=== PATIENT | male | born 1955 | race African-American/Black ===

== ENCOUNTER 2018-10-26 18:58 | Inpatient (IN) | payer MEDICARE, MEDICAID ==
[~2018-10-26] VITALS: Ht 185.4 cm; Wt 88.9 kg
[2018-10-26] MEDS ORDERED: Aspirin Baby 81mg ORAL ONE (19:15)
--- NOTE | 2018-10-26 19:19 | Emergency Room Report ---
History of Present Illness General Chief Complaint: Chest Pain Source: Patient Present Illness HPI Patient has a history of pacemaker on the right-sided chest perform [place] a couple weeks ago per his report. Patient presents here complaining of chest pain that radiates to his arm. Associates some shortness of breath. Denies any leg pain leg swelling. Denies any nausea vomiting diarrhea or chills. Symptoms noted to be severe.No other modifying factors. No other associated signs and symptoms. No other complaints were noted. Allergies: Coded Allergies: No Known Allergies (Unverified , 10/26/18) Patient History Past Medical History: HTN, CAD, psych hx Past Surgical History: pacemaker Pertinent Family History: none Social History: Denies: smoking, alcohol use, drug use Reviewed Nursing Documentation: PMH: Agreed; PSxH: Agreed Nursing Documentation-PMH Hx Pacemaker: Yes History Of Psychiatric Problem: Yes - bipolar schizophrenia Hx Neurological Problems: Yes - left and right hip [place] Review of Systems All Other Systems: negative except mentioned in HPI Physical Exam Vital Signs Date Time Temp Pulse Resp B/P (MAP) Pulse Ox O2 Delivery O2 Flow Rate FiO2 10/26/18 19:03 99.0 74 18 139/87 97 Room Air Sp02 EP Interpretation: reviewed, normal General Appearance: alert, mild distress Head: normocephalic, atraumatic Eyes: bilateral eye normal inspection ENT: normal ENT inspection, hearing grossly normal, normal voice Neck: normal inspection, full range of motion, supple, no bony tend Respiratory: normal inspection, lungs clear, normal breath sounds, no respiratory distress, no retraction, no wheezing Cardiovascular #1: regular rate, rhythm, no edema, other - Pacemaker right side of chest. Some bruising over the pacemaker. No evidence of infection Gastrointestinal: normal inspection, normal bowel sounds, non tender, soft, no guarding, no hernia Genitourinary: no CVA tenderness Musculoskeletal: normal inspection, back normal, normal range of motion Neurologic: normal inspection, alert, responsive, speech normal Psychiatric: judgement/insight normal, depressed affect, anxious Skin: normal inspection, normal color, no rash Medical Decision Making Diagnostic Impression: Primary Impression: ACS (acute coronary syndrome) ER Course Patient presented to the emergency department today complaining of chest pain. Differential diagnoses include acute coronary syndrome, pulmonary embolism, pneumothorax, chest wall pain, pleurisy, pericarditis, acute anxiety reaction just to name a few. Given the severity of the patient's presentation I felt this is a highly complex patient. This patient required extensive workup. CBC , chemistry, EKG, chest x-ray, cardiac enzymes, liver profile were all obtained. 12-lead EKG performed for nontraumatic chest pain. RS documentation: EKG was performed. Please refer to below for interpretation. Patient had CBC and chemistry obtained. Both of which were normal. Patient's cardiac enzymes also normal. However given patient's risk factors and chest pain for the patient require admission. Case was discussed with Dr. Darrian Gonzalez patient will be admitted to telemetry for further treatment. Labs Test 10/26/18 18:37 10/26/18 19:37 Urine Color Pale yellow Urine Appearance Clear Urine pH 5 (4.5-8.0) Urine Specific [place] 1.015 (1.005-1.035) Urine Protein Negative (NEGATIVE) Urine Glucose (UA) Negative (NEGATIVE) Urine Ketones Negative (NEGATIVE) Urine Blood Negative (NEGATIVE) Urine Nitrite Negative (NEGATIVE) Urine Bilirubin Negative (NEGATIVE) Urine Urobilinogen Normal MG/DL (0.0-1.0) Urine Leukocyte Esterase 1+ (NEGATIVE) Urine RBC 0-2 /HPF (0 - 0) Urine WBC 2-4 /HPF (0 - 0) Urine Squamous Epithelial Cells None /LPF (NONE/OCC) Urine Bacteria Occasional /HPF (NONE) White Blood Count 6.2 K/UL (4.8-10.8) Red Blood Count 4.01 M/UL (4.70-6.10) Hemoglobin 12.1 G/DL (14.2-18.0) Hematocrit 36.4 % (42.0-52.0) Mean Corpuscular Volume 91 FL (80-99) Mean Corpuscular Hemoglobin 30.1 PG (27.0-31.0) Mean Corpuscular Hemoglobin Concent 33.1 G/DL (32.0-36.0) Red Cell Distribution Width 12.6 % (11.6-14.8) Platelet Count 265 K/UL (150-450) Mean Platelet Volume 6.0 FL (6.5-10.1) Neutrophils (%) (Auto) 59.6 % (45.0-75.0) Lymphocytes (%) (Auto) 31.4 % (20.0-45.0) Monocytes (%) (Auto) 5.1 % (1.0-10.0) Eosinophils (%) (Auto) 2.7 % (0.0-3.0) Basophils (%) (Auto) 1.3 % (0.0-2.0) Sodium Level 141 MMOL/L (136-145) Potassium Level 3.9 MMOL/L (3.5-5.1) Chloride Level 107 MMOL/L (98-107) Carbon Dioxide Level 25 MMOL/L (21-32) Anion Gap 9 mmol/L (5-15) Blood Urea Nitrogen 17 mg/dL (7-18) Creatinine 1.4 MG/DL (0.55-1.30) Estimat Glomerular Filtration Rate 51.2 mL/min (>60) Glucose Level 97 MG/DL (74-106) Calcium Level 9.1 MG/DL (8.5-10.1) Total Bilirubin 0.2 MG/DL (0.2-1.0) Aspartate Amino Transf (AST/SGOT) 34 U/L (15-37) Alanine Aminotransferase (ALT/SGPT) 44 U/L (12-78) Alkaline Phosphatase 93 U/L (46-116) Total Creatine Kinase 676 U/L (26-308) Creatine Kinase MB 2.7 NG/ML (0.0-3.6) Creatine Kinase MB Relative Index 0.3 Troponin I 0.000 ng/mL (0.000-0.056) Pro-B-Type Natriuretic Peptide 133 pg/mL (0-125) Total Protein 8.1 G/DL (6.4-8.2) Albumin 3.6 G/DL (3.4-5.0) Globulin 4.5 g/dL Albumin/Globulin Ratio 0.8 (1.0-2.7) Lipase 173 U/L (73-393) EKG Diagnostic Results Rate: normal Rhythm: other - Paced rhythm atrial ST Segments: no acute changes Rhythm Strip Diag. Results EP Interpretation: yes Rate: 95 Rhythm: no PVC's, other - Paced rhythm, PAC Chest X-Ray Diagnostic Results Chest X-Ray Diagnostic Results : Chest X-Ray Ordered: Yes # of Views/Limited/Complete: 1 View Indication: Chest Pain EP Interpretation: Yes Interpretation: no consolidation, no effusion, no pneumothorax, no acute cardiopulmonary disease, other - Pacemaker Impression: No acute disease Electronically Signed by: Electronically signed by Pascual Oconnell MD Last Vital Signs Date Time Temp Pulse Resp B/P (MAP) Pulse Ox O2 Delivery O2 Flow Rate FiO2 10/26/18 19:03 99.0 74 18 139/87 97 Room Air Status: improved Disposition: ADMITTED INPATIENT Condition: Serious Scripts Unable to Obtain Active Prescriptions or Reported Meds Pascual Oconnell MD Oct 26, 2018 19:19
[2018-10-26 19:53] LABS: BASOPHILS % (AUTO) 1.3 % (0.0-2.0); EOSINOPHILS % (AUTO) 2.7 % (0.0-3.0); HEMATOCRIT 36.4 % (42.0-52.0); HEMOGLOBIN 12.1 G/DL (14.2-18.0); LYMPHOCYTES % (AUTO) 31.4 % (20.0-45.0); MEAN CORPUSCULAR VOLUME 91 FL (80-99); MONOCYTES % (AUTO) 5.1 % (1.0-10.0); NEUTROPHILS % (AUTO) 59.6 % (45.0-75.0); PLATELET COUNT 265 K/UL (150-450); RED BLOOD COUNT 4.01 M/UL (4.70-6.10); RED CELL DISTRIBUTION WIDTH 12.6 % (11.6-14.8); WHITE BLOOD COUNT 6.2 K/UL (4.8-10.8)
[2018-10-26 20:01] LABS: APPEARANCE,URINE CLEAR; BILIRUBIN, URINE NEGATIVE (NEGATIVE); COLOR,URINE PALE YELLOW; GLUCOSE, URINE (UA) NEGATIVE (NEGATIVE); KETONES,URINE NEGATIVE (NEGATIVE); LEUKOCYTE ESTERASE ,URINE 1+ (NEGATIVE); NITRITE,URINE NEGATIVE (NEGATIVE); PH,URINE 5 (4.5-8.0); PROTEIN,URINE NEGATIVE (NEGATIVE); UROBILINOGEN,URINE NORMAL MG/DL (0.0-1.0)
[2018-10-26 20:08] LABS: ANION GAP 9 mmol/L (5-15); BLOOD UREA NITROGEN 17 mg/dL (7-18); CALCIUM 9.1 MG/DL (8.5-10.1); CARBON DIOXIDE 25 MMOL/L (21-32); CHLORIDE 107 MMOL/L (98-107); CREATININE 1.4 MG/DL (0.55-1.30); POTASSIUM 3.9 MMOL/L (3.5-5.1); SODIUM 141 MMOL/L (136-145)
[2018-10-26 20:22] LABS: ALANINE AMINOTRANSFERASE 44 U/L (12-78); ALBUMIN 3.6 G/DL (3.4-5.0); ALBUMIN/GLOBULIN RATIO 0.8 (1.0-2.7); ALKALINE PHOSPHATASE 93 U/L (46-116); ASPARTATE AMINO TRANSFERASE 34 U/L (15-37); BILIRUBIN,TOTAL 0.2 MG/DL (0.2-1.0); CKMB 2.7 NG/ML (0.0-3.6); CREATINE KINASE 676 U/L (26-308)
[2018-10-26 20:34] VITALS: BP 138/83
[2018-10-26] MEDS ORDERED: Albuterol ud Inhalation HHN ONE (21:30)
[2018-10-26] MEDS ORDERED: Albuterol/Ipratropium 3ml neb HHN PRN (22:00)
[2018-10-27] VITALS (7 sets, daily range): BP systolic 106–146; BP diastolic 67–94
--- NOTE | 2018-10-27 08:57 | Diagnostic Imaging Report ---
Indication: Cough Technique: One view of the chest Comparison: none Findings: There is slight blunting of the left costophrenic sulcus. The heart is borderline enlarged with a left ventricular hypertrophy configuration. The lungs and pleural spaces are otherwise clear. There is a right chest pacemaker Impression: Left costophrenic sulcus blunting, probably due to atelectasis but could represent a small amount of pleural fluid No acute process otherwise Pacemaker This agrees with the preliminary interpretation provided by the emergency room physician
[2018-10-27] MEDS: Solu-MEDROL 40mg Inj IVP SCH ×2 (09:01→20:02)
[2018-10-27] MEDS: Aspirin EC 81mg tab ORAL SCH (09:01)
[2018-10-27] MEDS ORDERED: Flu Vaccine (Alfuria) for Pts Less than 65 Years old IM ONE (12:30)
--- NOTE | 2018-10-27 14:00 | Consultation ---
History of Present Illness General Date patient seen: Oct 27, 2018 Chief Complaint: Chest Pain Present Illness HPI history of pacemaker on the right-sided chest perform [place] a couple weeks ago per his report. The pt has insomnia. The pt has no si/hi. The pt has mild cognitive impairment. the pt was calm during the interview. Allergies: Coded Allergies: No Known Allergies (Unverified , 10/26/18) Medication History Unable to Obtain Active Prescriptions or Reported Meds Patient History Limited by: medical condition History Provided By: Patient, PMD Healthcare decision maker N Resuscitation status Full Code Advanced Directive on File Past Medical/Surgical History Past Medical/Surgical History: (1) ACS (acute coronary syndrome) Review of Systems Psychiatric: Reports: anxiety Physical Exam General Appearance: no apparent distress, alert Neurologic: oriented x 3, responsive, depressed affect Last 24 Hour Vital Signs Date Time Temp Pulse Resp B/P (MAP) Pulse Ox O2 Delivery O2 Flow Rate FiO2 10/27/18 12:00 98.0 67 18 128/94 (105) 97 10/27/18 12:00 67 10/27/18 09:00 Room Air 10/27/18 08:00 62 10/27/18 08:00 98.2 67 18 132/78 (96) 98 10/27/18 07:40 76 15 Room Air 21 10/27/18 04:00 97.3 72 17 146/70 (95) 95 10/27/18 04:00 61 10/27/18 01:23 Room Air 10/27/18 00:00 97.6 67 18 119/70 (86) 98 10/27/18 00:00 65 10/26/18 22:15 89.9 63 12 136/81 99 Room Air 21 10/26/18 21:57 68 12 99 Room Air 21 10/26/18 21:54 60 12 Room Air 21 10/26/18 21:51 21 10/26/18 21:51 60 12 100 Room Air 21 10/26/18 20:34 89.9 64 18 138/83 97 Room Air 10/26/18 20:34 64 18 Room Air 10/26/18 19:03 99.0 74 18 139/87 97 Room Air Intake and Output 10/26/18 10/27/18 19:00 07:00 Intake Total 730 ml Output Total 100 ml Balance 630 ml Intake Oral 730 ml Output Urine Total 100 ml # Voids 1 Laboratory Tests Test 10/26/18 18:37 10/26/18 19:37 10/27/18 06:23 Urine Color Pale yellow Urine Appearance Clear Urine pH 5 (4.5-8.0) Urine Specific [place] 1.015 (1.005-1.035) Urine Protein Negative (NEGATIVE) Urine Glucose (UA) Negative (NEGATIVE) Urine Ketones Negative (NEGATIVE) Urine Blood Negative (NEGATIVE) Urine Nitrite Negative (NEGATIVE) Urine Bilirubin Negative (NEGATIVE) Urine Urobilinogen Normal MG/DL (0.0-1.0) Urine Leukocyte Esterase 1+ (NEGATIVE) H Urine RBC 0-2 /HPF (0 - 0) H Urine WBC 2-4 /HPF (0 - 0) Urine Squamous Epithelial Cells None /LPF (NONE/OCC) Urine Bacteria Occasional /HPF (NONE) White Blood Count 6.2 K/UL (4.8-10.8) Red Blood Count 4.01 M/UL (4.70-6.10) L Hemoglobin 12.1 G/DL (14.2-18.0) L Hematocrit 36.4 % (42.0-52.0) L Mean Corpuscular Volume 91 FL (80-99) Mean Corpuscular Hemoglobin 30.1 PG (27.0-31.0) Mean Corpuscular Hemoglobin Concent 33.1 G/DL (32.0-36.0) Red Cell Distribution Width 12.6 % (11.6-14.8) Platelet Count 265 K/UL (150-450) Mean Platelet Volume 6.0 FL (6.5-10.1) L Neutrophils (%) (Auto) 59.6 % (45.0-75.0) Lymphocytes (%) (Auto) 31.4 % (20.0-45.0) Monocytes (%) (Auto) 5.1 % (1.0-10.0) Eosinophils (%) (Auto) 2.7 % (0.0-3.0) Basophils (%) (Auto) 1.3 % (0.0-2.0) Sodium Level 141 MMOL/L (136-145) Potassium Level 3.9 MMOL/L (3.5-5.1) Chloride Level 107 MMOL/L (98-107) Carbon Dioxide Level 25 MMOL/L (21-32) Anion Gap 9 mmol/L (5-15) Blood Urea Nitrogen 17 mg/dL (7-18) Creatinine 1.4 MG/DL (0.55-1.30) H Estimat Glomerular Filtration Rate 51.2 mL/min (>60) Glucose Level 97 MG/DL (74-106) Calcium Level 9.1 MG/DL (8.5-10.1) Total Bilirubin 0.2 MG/DL (0.2-1.0) Aspartate Amino Transf (AST/SGOT) 34 U/L (15-37) Alanine Aminotransferase (ALT/SGPT) 44 U/L (12-78) Alkaline Phosphatase 93 U/L (46-116) Total Creatine Kinase 676 U/L (26-308) H Creatine Kinase MB 2.7 NG/ML (0.0-3.6) Creatine Kinase MB Relative Index 0.3 Troponin I 0.000 ng/mL (0.000-0.056) 0.001 ng/mL (0.000-0.056) Pro-B-Type Natriuretic Peptide 133 pg/mL (0-125) H Total Protein 8.1 G/DL (6.4-8.2) Albumin 3.6 G/DL (3.4-5.0) Globulin 4.5 g/dL Albumin/Globulin Ratio 0.8 (1.0-2.7) L Lipase 173 U/L (73-393) Height (Feet): 6 Height (Inches): 1.00 Weight (Pounds): 196 Medications Current Medications Medications (Trade) Dose Ordered Sig/Jana Route PRN Reason Start Time Stop Time Status Last Admin Dose Admin Acetaminophen (Tylenol) 650 mg EVERY 4 HOURS PRN ORAL Mild Pain/Temp > 100.5 10/26/18 22:00 11/25/18 21:59 Acetaminophen/ Hydrocodone Bitart ([place] 5/325) 1 tab EVERY 4 HOURS PRN ORAL For Pain 10/26/18 22:00 11/02/18 21:59 Albuterol/ Ipratropium (Albuterol/ Ipratropium) 3 ml Q6HRT PRN HHN Shortness of Breath 10/26/18 22:00 10/31/18 21:59 Aspirin (Ecotrin) 81 mg DAILY ORAL 10/27/18 09:00 11/26/18 08:59 10/27/18 09:01 Methylprednisolone Sodium Succinate (Solu-MEDROL) 40 mg EVERY 12 HOURS IVP 10/27/18 09:00 11/26/18 08:59 10/27/18 09:01 Pantoprazole (Protonix) 40 mg ACBREAKFAST ORAL 10/27/18 06:30 11/26/18 06:29 10/27/18 05:50 Assessment/Plan Problem List: (1) Anxiety disorder ICD Codes: F41.9 - Anxiety disorder, unspecified SNOMED: 647785325 Assessment/Plan Ativan 1mg po q6hr/prn/ anxiety Provide /Luna Engel MD Oct 27, 2018 14:00
[2018-10-27] MEDS ORDERED: LORazepam 1mg tab ORAL PRN (14:05)
--- NOTE | 2018-10-27 16:14 | Cardiac Electrophysiology PN ---
Subjective Subjective EP consult dictated Objective Last 24 Hour Vital Signs Date Time Temp Pulse Resp B/P (MAP) Pulse Ox O2 Delivery O2 Flow Rate FiO2 10/27/18 12:00 98.0 67 18 128/94 (105) 97 10/27/18 12:00 67 10/27/18 09:00 Room Air 10/27/18 08:00 62 10/27/18 08:00 98.2 67 18 132/78 (96) 98 10/27/18 07:40 76 15 Room Air 21 10/27/18 04:00 97.3 72 17 146/70 (95) 95 10/27/18 04:00 61 10/27/18 01:23 Room Air 10/27/18 00:00 97.6 67 18 119/70 (86) 98 10/27/18 00:00 65 10/26/18 22:15 89.9 63 12 136/81 99 Room Air 21 10/26/18 21:57 68 12 99 Room Air 21 10/26/18 21:54 60 12 Room Air 21 10/26/18 21:51 21 10/26/18 21:51 60 12 100 Room Air 21 10/26/18 20:34 89.9 64 18 138/83 97 Room Air 10/26/18 20:34 64 18 Room Air 10/26/18 19:03 99.0 74 18 139/87 97 Room Air Intake and Output 10/26/18 10/27/18 19:00 07:00 Intake Total 730 ml Output Total 100 ml Balance 630 ml Intake Oral 730 ml Output Urine Total 100 ml # Voids 1 Laboratory Tests Test 10/26/18 18:37 10/26/18 19:37 10/27/18 06:23 Urine Color Pale yellow Urine Appearance Clear Urine pH 5 (4.5-8.0) Urine Specific [place] 1.015 (1.005-1.035) Urine Protein Negative (NEGATIVE) Urine Glucose (UA) Negative (NEGATIVE) Urine Ketones Negative (NEGATIVE) Urine Blood Negative (NEGATIVE) Urine Nitrite Negative (NEGATIVE) Urine Bilirubin Negative (NEGATIVE) Urine Urobilinogen Normal MG/DL (0.0-1.0) Urine Leukocyte Esterase 1+ (NEGATIVE) H Urine RBC 0-2 /HPF (0 - 0) H Urine WBC 2-4 /HPF (0 - 0) Urine Squamous Epithelial Cells None /LPF (NONE/OCC) Urine Bacteria Occasional /HPF (NONE) White Blood Count 6.2 K/UL (4.8-10.8) Red Blood Count 4.01 M/UL (4.70-6.10) L Hemoglobin 12.1 G/DL (14.2-18.0) L Hematocrit 36.4 % (42.0-52.0) L Mean Corpuscular Volume 91 FL (80-99) Mean Corpuscular Hemoglobin 30.1 PG (27.0-31.0) Mean Corpuscular Hemoglobin Concent 33.1 G/DL (32.0-36.0) Red Cell Distribution Width 12.6 % (11.6-14.8) Platelet Count 265 K/UL (150-450) Mean Platelet Volume 6.0 FL (6.5-10.1) L Neutrophils (%) (Auto) 59.6 % (45.0-75.0) Lymphocytes (%) (Auto) 31.4 % (20.0-45.0) Monocytes (%) (Auto) 5.1 % (1.0-10.0) Eosinophils (%) (Auto) 2.7 % (0.0-3.0) Basophils (%) (Auto) 1.3 % (0.0-2.0) Sodium Level 141 MMOL/L (136-145) Potassium Level 3.9 MMOL/L (3.5-5.1) Chloride Level 107 MMOL/L (98-107) Carbon Dioxide Level 25 MMOL/L (21-32) Anion Gap 9 mmol/L (5-15) Blood Urea Nitrogen 17 mg/dL (7-18) Creatinine 1.4 MG/DL (0.55-1.30) H Estimat Glomerular Filtration Rate 51.2 mL/min (>60) Glucose Level 97 MG/DL (74-106) Calcium Level 9.1 MG/DL (8.5-10.1) Total Bilirubin 0.2 MG/DL (0.2-1.0) Aspartate Amino Transf (AST/SGOT) 34 U/L (15-37) Alanine Aminotransferase (ALT/SGPT) 44 U/L (12-78) Alkaline Phosphatase 93 U/L (46-116) Total Creatine Kinase 676 U/L (26-308) H Creatine Kinase MB 2.7 NG/ML (0.0-3.6) Creatine Kinase MB Relative Index 0.3 Troponin I 0.000 ng/mL (0.000-0.056) 0.001 ng/mL (0.000-0.056) Pro-B-Type Natriuretic Peptide 133 pg/mL (0-125) H Total Protein 8.1 G/DL (6.4-8.2) Albumin 3.6 G/DL (3.4-5.0) Globulin 4.5 g/dL Albumin/Globulin Ratio 0.8 (1.0-2.7) L Lipase 173 U/L (73-393) Nasim Carver MD Oct 27, 2018 16:14
--- NOTE | 2018-10-27 17:52 | Cardiology Report ---
APPROVED REPORT EKG Measurement Heart [id number] P22 [id number] Sinus rhythm with Dual-Chamber Pacemaker Abnormal ECG
[2018-10-27] MEDS: Naproxen 500mg tab ORAL SCH (18:15)
[2018-10-27] MEDS: Vancomycin 750mg/NS 250ml IVPB SCH (20:03)
--- NOTE | 2018-10-27 20:15 | History and Physical Report ---
DATE OF ADMISSION: 10/26/2018 HISTORY OF PRESENT ILLNESS: This is a 63-year-old male, who came to the emergency room for having chest pain and short of breath, was found to have acute chronic obstructive pulmonary disease exacerbation. The patient also has a recurrent chest pain and had a pacemaker placement about two weeks ago, but was feeling better. He has mild soreness on the left chest where he has a pacemaker, but there was no fever and no chills. PAST MEDICAL HISTORY: Significant for chronic obstructive pulmonary disease, congestive heart failure, hypertension, and depression. MEDICATIONS: See the list. ALLERGIES: NKA. FAMILY HISTORY: Noncontributory. SOCIAL HISTORY: The patient lives at home. He quitted smoking. Denies any illegal drugs. REVIEW OF SYSTEMS: Generalized weakness, tired, fatigue, recurrent chest pain, mild short of breath, and cough with sputum production. PHYSICAL EXAMINATION: VITAL SIGNS: Blood pressure is 128/94, pulse 67, respirations 18, and temperature 98. HEENT: AT/NC. EOMI. PERRLA. NECK: Supple. No JVD. CHEST: Bilaterally scattered wheezing and crackles. CARDIOVASCULAR: Regular rhythm. Tachycardia. ABDOMEN: Soft. Positive bowel sounds. EXTREMITIES: CCE. NEUROLOGICAL: Generalized weakness. GENITOURINARY: Deferred. LABORATORY DATA: White count 6.2 and hemoglobin 12. Chemistry panel, sodium 141, potassium 3.9, BUN 17, creatinine 1.4, and troponin 0.001. BNP is 133. His urine test is normal and 1+ leukocyte esterase. ASSESSMENT: 1. Acute chronic obstructive pulmonary disease. 2. Urinary tract infection. 3. Acute chronic obstructive pulmonary disease. 4. Hypertension. 5. Depression. PLAN: We will currently continue aspirin and bronchodilator treatments. Continue supportive treatment. Continue Tylenol, Solu-Medrol, and [place] for severe pain. Darrian Gonzalez M.D. DR: HOMER JOB#: [id number] CC:
--- NOTE | 2018-10-28 | Consultation ---
DATE OF CONSULTATION: 10/27/2018 CARDIAC ELECTROPHYSIOLOGY CONSULTATION CONSULTING PHYSICIAN: Nasim Carver M.D. REFERRING PHYSICIAN: Darrian Gonzalez M.D. REASON FOR CONSULTATION: Evaluation of pacemaker and possible pacemaker infection. HISTORY OF PRESENT ILLNESS: The patient is a 63-year-old gentleman with history of hypertension and recent permanent pacemaker implantation a couple of weeks ago at [facility] with Biotronik pacemaker. The pacemaker was implanted on the right side. The patient came to the emergency room for increasing chest pain. At the site of the pacemaker, there was increasing hematoma. EKG showed atrially paced rhythm. unipolar pacing. Cardiac electrophysiology consultation was obtained for further evaluation and management. REVIEW OF SYSTEMS: Review of systems was negative other than what is mentioned in the history of present illness. PAST MEDICAL HISTORY: 1. Hypertension. 2. Status post Biotronik pacemaker implantation a couple of weeks ago at [facility]. 3. Coronary artery disease. 4. History of psychosis and bipolar schizophrenia. PHYSICAL EXAMINATION: VITAL SIGNS: Show blood pressure of 128/94, pulse 67, respirations 18, and temperature 98. HEAD AND NECK: No JVD. LUNGS: Coarse rhonchi. CARDIOVASCULAR: Regular S1 and S2 with no gallop. The pacemaker on the right side has significant hematoma on the lower part of the incision. ABDOMEN: Soft. EXTREMITIES: No pitting edema. LABORATORY AND DIAGNOSTIC DATA: His labs show white count of 6.2, hemoglobin 12.4, hematocrit 36.4, and platelet count 265. Sodium 141, potassium 3.9, BUN of 17, creatinine 1.4, glucose of 97. Troponin negative x2. CK 676. ASSESSMENT/PLAN: 1. Status post Biotronik pacemaker with significant pocket hematoma, possible infection. The white count currently is within normal range. The patient is afebrile. We will apply ice pack. We will continue to monitor site and the patient needs Infectious Diseases consultation and needs drainage of hematoma on its own and then the pacemaker lead needs to be removed infection. 2. COPD, on Solu-Medrol. 3. Psychosis managed by Dr. Brown. Thank you much Dr. Gonzalez for allowing me to participate in the care of this patient. Please do not hesitate to contact for any questions regarding my evaluation. Sincerely, Nasim Carver M.D. DR: Sunday JOB#: [id number] CC:
[2018-10-28 08:00] VITALS: BP 165/98
[2018-10-28] MEDS: Vancomycin 750mg/NS 250ml IVPB SCH ×2 (09:27→20:06)
[2018-10-28] MEDS: Solu-MEDROL 40mg Inj IVP SCH ×2 (09:28→20:07)
[2018-10-28] MEDS: Naproxen 500mg tab ORAL SCH ×2 (09:28→18:02)
[2018-10-28] MEDS: Aspirin EC 81mg tab ORAL SCH (09:28)
[2018-10-28] MEDS: Norco 5mg/325mg tab ORAL PRN (09:43)
[2018-10-28 12:00] VITALS: BP 141/104
--- NOTE | 2018-10-28 12:39 | General Progress Note ---
Assessment/Plan Problem List: (1) Anxiety disorder ICD Codes: F41.9 - Anxiety disorder, unspecified SNOMED: 102056941 Assessment/Plan Ativan 1mg po q6hr/prn/ anxiety Provide st/ro depakote 500mg po bid Subjective Neurologic/Psychiatric: Reports: anxiety, depressed, emotional problems Allergies: Coded Allergies: No Known Allergies (Unverified , 10/26/18) Subjective the pt was irritable and uncooperative Objective Last 24 Hour Vital Signs Date Time Temp Pulse Resp B/P (MAP) Pulse Ox O2 Delivery O2 Flow Rate FiO2 10/28/18 09:58 97.5 10/28/18 09:58 97.5 10/28/18 09:00 Room Air 10/28/18 08:00 97.5 61 22 165/98 (120) 100 10/28/18 04:00 65 10/28/18 00:00 62 10/27/18 23:51 98.2 90 18 106/73 (84) 96 10/27/18 21:00 Room Air 10/27/18 20:09 78 16 Room Air 21 10/27/18 20:00 64 10/27/18 20:00 98.0 61 18 127/67 (87) 95 10/27/18 16:00 66 10/27/18 16:00 97.9 66 18 136/78 (97) 96 Intake and Output 10/27/18 10/28/18 19:00 07:00 Intake Total 720 ml Output Total 1250 ml 800 ml Balance -530 ml -800 ml Intake Oral 720 ml Output Urine Total 1250 ml 800 ml # Voids 2 # Bowel Movements 2 Height (Feet): 6 Height (Inches): 1.00 Weight (Pounds): 196 General Appearance: alert, confused - uncooperative , agitated Luna Brown MD Oct 28, 2018 12:39
[2018-10-28] MEDS ORDERED: Depakote 500mg tab ORAL SCH (12:45)
--- NOTE | 2018-10-28 13:08 | Infectious Diseases Prog Note ---
Assessment/Plan Assessment/Plan ID consult dictated # [id number] Subjective Allergies: Coded Allergies: No Known Allergies (Unverified , 10/26/18) Objective Vital Signs Last 24 Hour Vital Signs Date Time Temp Pulse Resp B/P (MAP) Pulse Ox O2 Delivery O2 Flow Rate FiO2 10/28/18 09:58 97.5 10/28/18 09:58 97.5 10/28/18 09:00 Room Air 10/28/18 08:00 97.5 61 22 165/98 (120) 100 10/28/18 04:00 65 10/28/18 00:00 62 10/27/18 23:51 98.2 90 18 106/73 (84) 96 10/27/18 21:00 Room Air 10/27/18 20:09 78 16 Room Air 21 10/27/18 20:00 64 10/27/18 20:00 98.0 61 18 127/67 (87) 95 10/27/18 16:00 66 10/27/18 16:00 97.9 66 18 136/78 (97) 96 Height (Feet): 6 Height (Inches): 1.00 Weight (Pounds): 196 Microbiology Date/Time Source Procedure Growth Status 10/26/18 22:50 Nasal Nares MRSA Culture - Final NO METHICILLIN RESISTANT STAPH AUREUS... Complete Current Medications Medications (Trade) Dose Ordered Sig/Jana Route PRN Reason Start Time Stop Time Status Last Admin Dose Admin Acetaminophen (Tylenol) 650 mg EVERY 4 HOURS PRN ORAL Mild Pain/Temp > 100.5 10/26/18 22:00 11/25/18 21:59 Acetaminophen/ Hydrocodone Bitart ([place] 5/325) 1 tab EVERY 4 HOURS PRN ORAL For Pain 10/26/18 22:00 11/02/18 21:59 10/28/18 09:43 Albuterol/ Ipratropium (Albuterol/ Ipratropium) 3 ml Q6HRT PRN HHN Shortness of Breath 10/26/18 22:00 10/31/18 21:59 Aspirin (Ecotrin) 81 mg DAILY ORAL 10/27/18 09:00 11/26/18 08:59 10/28/18 09:28 Divalproex Sodium (Depakote) 500 mg EVERY 12 HOURS ORAL 10/28/18 21:00 11/27/18 20:59 Divalproex Sodium (Depakote) 500 mg ONCE ORAL 10/28/18 12:45 10/28/18 13:45 Lorazepam (Ativan) 1 mg Q6H PRN ORAL For Anxiety 10/27/18 14:05 11/03/18 14:04 Methylprednisolone Sodium Succinate (Solu-MEDROL) 40 mg EVERY 12 HOURS IVP 10/27/18 09:00 11/26/18 08:59 10/28/18 09:28 Naproxen (Naprosyn) 500 mg TWICE A DAY ORAL 10/27/18 18:00 11/26/18 17:59 10/28/18 09:28 Pantoprazole (Protonix) 40 mg ACBREAKFAST ORAL 10/27/18 06:30 11/26/18 06:29 10/27/18 05:50 Vancomycin HCl (Vanco rx to dose) 1 ea DAILY PRN MISC Per rx protocol 10/27/18 17:45 11/26/18 17:44 Vancomycin/Sodium Chloride 250 ml @ 166.667 mls/hr Q12H IVPB 10/27/18 20:00 11/01/18 19:59 10/28/18 09:27 Shaq Leija MD Oct 28, 2018 13:08
--- NOTE | 2018-10-28 14:04 | Diagnostic Imaging Report ---
Indication: Chest pain. Recent pacemaker placement. Technique: Noncontrast CT of the chest utilizing automated exposure control. Axial, sagittal and coronal reformats presented. CT dose: Total DLP 723.12 mGycm; CTDI vol 20.02 mGy Comparison: None Findings: Very mild linear atelectasis or scarring is noted in the left lower lobe. Otherwise there is no focal airspace consolidation. There is some scarring in the bilateral apices, left greater than right. Some small blebs are also noted in the apices. There is no pleural effusion or pneumothorax. A right chest wall lead pacemaker is noted. There is mild soft tissue prominence in the tissues superficial to the pacemaker battery pack (series 3 image #9) which may be related to postoperative change given recent history of pacemaker placement. A thin subcutaneous hematoma is not excluded especially given the hyperdensity of the subcutaneous component. This measures less than 1 cm in thickness. No well-defined/drainable fluid collection seen. Pacemaker leads appear continuous throughout their course with its terminating in the right atrium and ventricle. Heart size within normal limits. There is no pericardial effusion. Mild aortic valvular calcifications noted. There are calcified left hilar lymph nodes. Some low-attenuation lesions are noted in the left kidney, not definitively characterize but possibly cysts. Confirmation with renal ultrasound can be obtained as clinically indicated with some colonic diverticula are noted without evidence to suggest acute diverticulitis. There are degenerative changes in the spine. No acute osseous abnormality. IMPRESSION: * Right chest wall pacemaker in place. Thin (less than 1 cm in thickness) region of high attenuation in the subcutaneous tissues superficial to the pocket for the battery pack may represent a small hematoma versus postoperative change. Correlation with physical exam recommended. Superimposed infection cannot entirely be excluded based on these images however surrounding soft tissue stranding to suggest such. * Focal airspace consolidation, pleural effusion or pneumothorax. Additional findings as above. The CT scanner at [facility] is accredited by the [employer] and the scans are performed using protocols designed to limit radiation exposure to as low as reasonably achievable to attain images of sufficient resolution adequate for diagnostic evaluation.
--- NOTE | 2018-10-28 16:11 | Cardiac Electrophysiology PN ---
Assessment/Plan Assessment/Plan 1. Status post Biotronik pacemaker with significant pocket hematoma and possible infection. The white count currently is within normal range. The patient is afebrile. We will apply ice pack. We will continue to monitor site. Awaiting Infectious Diseases consultation. Blood cultures pending Pacer interrogation showed Nl Fx 2. COPD, on Solu-Medrol. 3. Psychosis managed by Dr. Brown. Subjective Subjective Feeling better. Wants to go home Objective Last 24 Hour Vital Signs Date Time Temp Pulse Resp B/P (MAP) Pulse Ox O2 Delivery O2 Flow Rate FiO2 10/28/18 12:00 62 10/28/18 12:00 97.5 70 23 141/104 (116) 95 10/28/18 09:58 97.5 10/28/18 09:58 97.5 10/28/18 09:00 Room Air 10/28/18 08:00 62 10/28/18 08:00 97.5 61 22 165/98 (120) 100 10/28/18 04:00 65 10/28/18 00:00 62 10/27/18 23:51 98.2 90 18 106/73 (84) 96 10/27/18 21:00 Room Air 10/27/18 20:09 78 16 Room Air 21 10/27/18 20:00 64 10/27/18 20:00 98.0 61 18 127/67 (87) 95 Intake and Output 10/27/18 10/28/18 19:00 07:00 Intake Total 720 ml Output Total 1250 ml 800 ml Balance -530 ml -800 ml Intake Oral 720 ml Output Urine Total 1250 ml 800 ml # Voids 2 # Bowel Movements 2 Microbiology Date/Time Source Procedure Growth Status 10/26/18 22:50 Nasal Nares MRSA Culture - Final NO METHICILLIN RESISTANT STAPH AUREUS... Complete Objective HEAD AND NECK: No JVD. LUNGS: Coarse rhonchi. CARDIOVASCULAR: Regular S1 and S2 with no gallop. The pacemaker on the right side has significant hematoma on the lower part of the incision. ABDOMEN: Soft. EXTREMITIES: No pitting edema. Nasim Carver MD Oct 28, 2018 16:11
--- NOTE | 2018-10-28 18:15 | Consultation ---
DATE OF CONSULTATION: 10/28/2018 INFECTIOUS DISEASES CONSULTATION This consult is for coverage of Dr. Dash. CONSULTING PHYSICIAN: Shaq Leija M.D. PRIMARY ATTENDING PHYSICIAN: Siddhartha Torrez REASON FOR CONSULTATION: Pacemaker pocket infection or hematoma. HISTORY OF PRESENT ILLNESS: This is a 63-year-old male admitted 10/26/2018 complaining of right side chest pain with radiation to arm. He had a pacemaker placement in right side of the chest wall. He says that after the pacemaker placement the area became swollen and his swelling is going down. The patient had no fever. PAST MEDICAL HISTORY: Significant for sepsis, pacemaker, hypertension, coronary artery disease, status post bilateral hip replacement, psychiatric issue including anxiety disorder, likely schizoaffective. ALLERGIES: No known drug allergies. MEDICATIONS: Depakote, vancomycin, methylprednisone, lorazepam, Solu-Medrol, Protonix, Tylenol, albuterol ipratropium inhaler, hydrocodone/Tylenol. SOCIAL HISTORY: The patient states he live in long term. Single. Smoker. REVIEW OF SYSTEMS: No fever. No chills. No other symptoms except pain in the right chest wall area and hips. PHYSICAL EXAMINATION: VITAL SIGNS: Temperature 97.5, pulse 61, blood pressure 165/98. GENERAL APPEARANCE: No acute distress. HEAD AND NECK: [place] conjunctiva. Wears glasses. HEART: S1-S2 regular, has right-sided pacemaker. There is tenderness and skin discoloration. Bruising at the site of the pacemaker. LUNGS: Clear. ABDOMEN: Soft and nontender. EXTREMITIES: No edema. NEUROLOGIC: Awake, alert, oriented. LABORATORY AND DIAGNOSTIC DATA: WBC 6.2, hemoglobin 12.1, hematocrit 36.4, platelets 265,000. Sodium 141, potassium 3.9, chloride 107, bicarbonate 25, BUN 17, creatinine 1.4. CK is 676. MRSA screen is negative. Other cultures are pending. Chest x-ray showed pacemaker, no acute process except left costophrenic sulcus blunting, likely atelectasis. IMPRESSION: Pacemaker hematoma. We will try to rule out infection, abscess off the pocket site. The patient has hypertension, anxiety disorder, bilateral hip replacement, coronary artery disease. RECOMMENDATION: We will continue with IV vancomycin. We will order a CT scan of the chest. We will follow up the cultures. At the end of my exam, I thank Dr. Torrez for involving me in the care of this patient. Shaq Leija M.D. DR: Nandini JOB#: [id number] CC: HARRIETT
[2018-10-28 20:00] VITALS: BP 143/104
[2018-10-28] MEDS: Depakote 500mg tab ORAL SCH (20:07)
--- NOTE | 2018-10-28 20:30 | Progress Note ---
DATE: 10/28/2018 SUBJECTIVE: This is a 63-year-old male who comes with acute COPD and chest pain. The patient was also noted to have swelling on the pacemaker site most likely hematoma. The patient is currently alert and oriented, in no pain. No fever. No chills. White counts are normal. He is asymptomatic. OBJECTIVE: VITAL SIGNS: Blood pressure is 141/104, pulse 60, temperature 97.5 degrees. CHEST: Bilaterally clear CARDIOVASCULAR: Regular rhythm. ABDOMEN: Soft. EXTREMITIES: CCE. Pacemaker site has been slightly well as swelling GENITOURINARY: Deferred. No warm on touch. No pain is noted. ASSESSMENT: 1. Acute COPD is improving. 2. Chest pain. 3. Status post hematoma at pacemaker site. 4. Hypertension. 5. COPD. PLAN: 1. We will currently continue current treatment. 2. Ice pack three times a day. 3. We will monitor laboratories. 4. Continue Depakote. 5. Discontinue vancomycin. 6. Continue aspirin, PPIs, Tylenol and bronchodilator treatments. 7. [place] for severe pain. The patient is going to go to the jail. Followup as an outpatient. Darrian Gonzalez M.D. DR: Letty JOB#: [id number] CC:
[2018-10-29 07:26] LABS: HEMOGLOBIN 12.6 G/DL (14.2-18.0); MEAN CORPUSCULAR VOLUME 90 FL (80-99); PLATELET COUNT 304 K/UL (150-450); RED CELL DISTRIBUTION WIDTH 12.8 % (11.6-14.8); WHITE BLOOD COUNT 17.3 K/UL (4.8-10.8)
[2018-10-29 07:30] LABS: ANION GAP 11 mmol/L (5-15); BLOOD UREA NITROGEN 23 mg/dL (7-18); CALCIUM 9.6 MG/DL (8.5-10.1); CARBON DIOXIDE 24 MMOL/L (21-32); CHLORIDE 106 MMOL/L (98-107); CREATININE 1.7 MG/DL (0.55-1.30); POTASSIUM 4.4 MMOL/L (3.5-5.1); SODIUM 141 MMOL/L (136-145)
[2018-10-29 08:00] VITALS: BP 148/96
--- NOTE | 2018-10-29 08:34 | Cardiac Electrophysiology PN ---
Assessment/Plan Status Narrative Chest CT * Right chest wall pacemaker in place. Thin (less than 1 cm in thickness) region of high attenuation in the subcutaneous tissues superficial to the pocket for the battery pack may represent a small hematoma versus postoperative change. Correlation with physical exam recommended. Superimposed infection cannot entirely be excluded based on these images however surrounding soft tissue stranding to suggest such. * Focal airspace consolidation, pleural effusion or pneumothorax. Assessment/Plan 1. Status post Biotronik pacemaker with significant pocket hematoma and possible infection. The white count currently is within normal range. The patient is afebrile. Apply ice pack. We will continue to monitor site. Awaiting Infectious Disease clearance. Blood cultures pending. Chest CT noted. Pacer interrogation showed Nl Fx 2. COPD, on Solu-Medrol. 3. Psychosis managed by Dr. Brown. Subjective Subjective Had chest CT and was evaluated by ID. Wants to go home today. Objective Last 24 Hour Vital Signs Date Time Temp Pulse Resp B/P (MAP) Pulse Ox O2 Delivery O2 Flow Rate FiO2 10/28/18 21:00 Room Air 10/28/18 20:45 67 18 Room Air 21 10/28/18 20:00 97.9 77 20 143/104 (117) 96 10/28/18 18:32 97.5 10/28/18 12:00 62 10/28/18 12:00 97.5 70 23 141/104 (116) 95 10/28/18 09:58 97.5 10/28/18 09:00 Room Air Intake and Output 10/28/18 10/29/18 19:00 07:00 # Voids 5 3 Laboratory Tests Test 10/29/18 06:50 White Blood Count 17.3 K/UL (4.8-10.8) H Red Blood Count 4.20 M/UL (4.70-6.10) L Hemoglobin 12.6 G/DL (14.2-18.0) L Hematocrit 38.0 % (42.0-52.0) L Mean Corpuscular Volume 90 FL (80-99) Mean Corpuscular Hemoglobin 29.9 PG (27.0-31.0) Mean Corpuscular Hemoglobin Concent 33.1 G/DL (32.0-36.0) Red Cell Distribution Width 12.8 % (11.6-14.8) Platelet Count 304 K/UL (150-450) Mean Platelet Volume 5.8 FL (6.5-10.1) L Neutrophils (%) (Auto) % (45.0-75.0) Lymphocytes (%) (Auto) % (20.0-45.0) Monocytes (%) (Auto) % (1.0-10.0) Eosinophils (%) (Auto) % (0.0-3.0) Basophils (%) (Auto) % (0.0-2.0) Neutrophils % (Manual) Pending Lymphocytes % (Manual) Pending Platelet Estimate Pending Platelet Morphology Pending Sodium Level 141 MMOL/L (136-145) Potassium Level 4.4 MMOL/L (3.5-5.1) Chloride Level 106 MMOL/L (98-107) Carbon Dioxide Level 24 MMOL/L (21-32) Anion Gap 11 mmol/L (5-15) Blood Urea Nitrogen 23 mg/dL (7-18) H Creatinine 1.7 MG/DL (0.55-1.30) H Estimat Glomerular Filtration Rate 49.6 mL/min (>60) Glucose Level 105 MG/DL (74-106) Calcium Level 9.6 MG/DL (8.5-10.1) Vancomycin Level Trough 7.3 ug/mL (5.0-12.0) Microbiology Date/Time Source Procedure Growth Status 10/28/18 05:45 Blood Blood Culture - Preliminary NO GROWTH AFTER 24 HOURS Resulted 10/28/18 05:30 Blood Blood Culture - Preliminary NO GROWTH AFTER 24 HOURS Resulted 10/26/18 22:50 Nasal Nares MRSA Culture - Final NO METHICILLIN RESISTANT STAPH AUREUS... Complete Objective HEAD AND NECK: No JVD. LUNGS: Coarse rhonchi. CARDIOVASCULAR: Regular S1 and S2 with no gallop. The pacemaker on the right side has significant hematoma on the lower part of the incision. ABDOMEN: Soft. EXTREMITIES: No pitting edema. Nasim Carver MD Oct 29, 2018 08:34
[2018-10-29] MEDS: Solu-MEDROL 40mg Inj IVP SCH (08:46)
[2018-10-29] MEDS: Aspirin EC 81mg tab ORAL SCH (08:46)
[2018-10-29] MEDS: Depakote 500mg tab ORAL SCH (08:47)
[2018-10-29] MEDS: Naproxen 500mg tab ORAL SCH (08:48)
[2018-10-29] MEDS: Norco 5mg/325mg tab ORAL PRN (08:48)
[2018-10-29] MEDS ORDERED: Vancomycin 1gm/D5W 275ml IVPB SCH ×2 (09:00)
[2018-10-29] MEDS ORDERED: NS 275ml ONE (10:49)
--- NOTE | 2018-10-30 01:21 | General Progress Note ---
Assessment/Plan Problem List: (1) Anxiety disorder ICD Codes: F41.9 - Anxiety disorder, unspecified SNOMED: 803322447 Assessment/Plan Ativan 1mg po q6hr/prn/ anxiety Provide st/ro depakote 500mg po bid Subjective Neurologic/Psychiatric: Reports: anxiety, depressed Allergies: Coded Allergies: No Known Allergies (Unverified , 10/26/18) Subjective the pt was irritable and uncooperative Objective Last 24 Hour Vital Signs Date Time Temp Pulse Resp B/P (MAP) Pulse Ox O2 Delivery O2 Flow Rate FiO2 10/29/18 09:18 84 18 Room Air 21 10/29/18 09:18 97.9 10/29/18 09:00 Room Air 10/29/18 08:00 97.7 61 18 148/96 (113) 96 Laboratory Tests 10/29/18 06:50: White Blood Count 17.3H, Red Blood Count 4.20L, Hemoglobin 12.6L, Hematocrit 38.0L, Mean Corpuscular Volume 90, Mean Corpuscular Hemoglobin 29.9, Mean Corpuscular Hemoglobin Concent 33.1, Red Cell Distribution Width 12.8, Platelet Count 304, Mean Platelet Volume 5.8L, Neutrophils (%) (Auto) , Lymphocytes (%) ( Auto) , Monocytes (%) (Auto) , Eosinophils (%) (Auto) , Basophils (%) (Auto) , Differential Total Cells Counted 100, Neutrophils % (Manual) 88H, Lymphocytes % (Manual) 8L, Monocytes % (Manual) 4, Eosinophils % (Manual) 0, Basophils % ( Manual) 0, Band Neutrophils 0, Platelet Estimate Adequate, Platelet Morphology Normal, Red Blood Cell Morphology Normal, Sodium Level 141, Potassium Level 4.4 , Chloride Level 106, Carbon Dioxide Level 24, Anion Gap 11, Blood Urea Nitrogen 23H, Creatinine 1.7H, Estimat Glomerular Filtration Rate 49.6, Glucose Level 105, Calcium Level 9.6, Vancomycin Level Trough 7.3 Height (Feet): 6 Height (Inches): 1.00 Weight (Pounds): 196 Neurologic: alert, oriented x 3, responsive, depressed affect Luna Brown MD Oct 30, 2018 01:21
--- NOTE | 2018-10-30 03:15 | Progress Note ---
DATE: 10/29/2018 NOTE: POOR AUDIO SUBJECTIVE: The patient comes in for chest pain. This is a for chest pain and acute chronic obstructive pulmonary disease. The patient was found have hematoma at pacemaker site two weeks ago. The patient also has increased . The patient then has a CT scan showing the hematoma. consult was obtained with Dr. Lewis. Cardiology consult was obtained. The patient is asymptomatic. Antibiotic . ASSESSMENT: 1. Atypical chest pain. 2. Chronic obstructive pulmonary disease. 3. Hematoma at the pacemaker site. 4. Depression. 5. . PLAN: indication. The patient is going to continue IV antibiotics. Continue for 5 days. Continue . Darrian Gonzalez M.D. DR: HOMER JOB#: [id number] CC:
--- NOTE | 2018-10-31 12:02 | Discharge Summary ---
Discharge Summary Discharge Summary _ DATE OF ADMISSION: 10/26/2000 DATE OF DISCHARGE: 10/29/2019 DISCHARGED BY: Dr. Gonzalez REASON FOR ADMISSION: 63 years old male with past medical history of pacemaker placement few weeks ago at [facility] [place], hypertension, coronary artery disease, psychiatric disorder , presented to emergency department complaining of chest pain radiating down his arm. Patient also reported associated shortness of breath. He denied leg pain or swelling. He denied nausea , vomiting, diarrhea. No fever, no chills . Upon evaluation vital signs were stable. Workup revealed no leukocytosis, hemoglobin 12.1 hematocrit 36.4. Troponin was negative. EKG revealed sinus rhythm, no acute ischemic changes. BUN 17 creatinine 1.4. Urinalysis revealed no evidence of UTI. Stable electrolytes Chest X ray revealed left costophrenic sulcus blunting, probably due to atelectasis but could represent a small amount of pleural fluid. No acute process otherwise. Pacemaker Patient admitted with chest pain ,rule out acute coronary syndrome, acute COPD, hypertension, depression. CONSULTANTS: tufting machine operator single needle Dr. Ye ID specialist Dr. Homar Leija psychiatrist [facility] COURSE: Patient admitted to telemetry floor. Supplemental oxygen provided as needed to keep pulse oximetry above 90%, hand held nebulizing therapy with bronchodilator provided [id number] and as needed. Patient was on IV steroids with gradual tapering down. Cardiology consult was requested. Serial troponin were negative. EKG revealed no acute ischemic changes. Patient was ruled out for acute NC. Echocardiogram revealed preserved ejection fraction of 60%. No wall motion abnormality. Moderate left ventricular hypertrophy. Mild biatrial enlargement. Right ventricular systolic pressure of 30. Patient subsequently undergone CT of the chest which revealed right chest wall pacemaker in place. Thin (less than 1 cm in thickness) region of high attenuation in the subcutaneous tissues superficial to the pocket for the battery pack, probably representing a small hematoma versus postoperative change. Superimposed infection cannot entirely be excluded based on these images. Per tufting machine operator single needle patient had a significant pocket hematoma and possible infection. [employer]aming Mill Supervisor recommended apply ice and continue with pain management Pacemaker interrogation showed normal functioning. Blood pressure was closely monitored. ID specialist consult was requested due to possible infection or abscess in the pocket site. CT of the chest revealed no clear evidence of infection. Patient was afebrile , no leukocytosis. Blood cultures were negative. ID specialist cleared patient for discharge. GI prophylaxis provided. Psychiatrist closely followed. Per psychiatrist, patient had anxiety disorder. Reality orientation and supportive therapy provided. Anxiolytics were on board as needed. Chest pain resolved. Pulse oximetry stable on room air. Patient was stable for transfer to the [facility] facility for continuation of care. FINAL DIAGNOSES: COPD exacerbation Status post Biotronik pacemaker with significant pocket hematoma Atypical chest pain, probably related to hematoma at pacemaker site Hypertension Anxiety disorder Depression DISCHARGE MEDICATIONS: List of medication was sent to accepting facility DISCHARGE INSTRUCTIONS: Patient was discharged to the [facility] facility. Follow up with medical doctor at the facility. I have been assigned to dictate discharge summary for this account. I was not involved in the patient's management. Isela Escobar NP Oct 31, 2018 12:02
--- NOTE | 2018-11-01 08:27 | Cardiology Report ---
APPROVED REPORT EXAM: Two-dimensional and M-mode echocardiogram with Doppler and color Doppler. INDICATION Endocarditis M-Mode DIMENSIONS IVSd0.9 (0.7-1.1cm)Left Atrium (MM)4.3 (1.6-4.0cm) LVDd5.1 (3.5-5.6cm)Aortic Root3.4 (2.0-3.7cm) PWd1.5 (0.7-1.1cm)Aortic Cusp Exc.1.9 (1.5-2.0cm) LVDs3.8 (2.5-4.0cm) PWs1.5 cm Normal left ventricular chamber size, systolic function and wall motion. Left ventricular ejection fraction estimated to be 60 %. Moderate left ventricular hypertrophy by 2-D. Anterior Echo-free space, may be due to pericardial fat or effusion. Mild bi-atrial enlargement. Right ventricular chamber size is within normal limits. Focal aortic valve sclerosis with adequate cusp excursion. Thickened mitral valve leaflets with normal excursion. Mitral annulus and aortic root calcification. Pulmonic valve not well visualized. Normal tricuspid valve structure. IVC at normal size with physiologic collapse. A color flow and spectral Doppler study was performed and revealed: Trace mitral regurgitation. Mitral diastolic velocities suggest reduced left ventricular relaxation c/w mild LV diastolic dysfunction (Grade I). Trace to mild tricuspid regurgitation. Tricuspid systolic velocities suggests peak right ventricular systolic pressure of 30 mmHg.
== END 2018-10-29 10:50 | DRG 191 ==
LOC: EMR 19:40 → 2E 20:30 → EDBEDREQ 21:11 → 2E 10-27 21:11
DX: J44.1 Chronic obstructive pulmonary disease with (acute) exacerbation (principal); N39.0 Urinary tract infection, site not specified; T82.837A Hemorrhage due to cardiac prosthetic devices, implants and grafts, initial encounter; F31.89 Other bipolar disorder; I10 Essential (primary) hypertension; F32.9 Major depressive disorder, single episode, unspecified; Z95.0 Presence of cardiac pacemaker; Y83.8 Other surgical procedures as the cause of abnormal reaction of the patient, or of later complication, without mention of misadventure at the time of the procedure; F41.9 Anxiety disorder, unspecified; R07.89 Other chest pain; G31.84 Mild cognitive impairment of uncertain or unknown etiology; Z96.643 Presence of artificial hip joint, bilateral; I25.10 Atherosclerotic heart disease of native coronary artery without angina pectoris
CPT/HCPCS: 36415; 71045; 71250; 80048; 80053; 80202; 81003; 82550; 82553; 83690; 83880; 84484; 85007; 85025; 87040; 87081; 90686; 93005; 93306; 94640; 94664; 99285